=== PATIENT | female | born 1945 | race Asian ===

== ENCOUNTER 2017-04-03 12:23 | Inpatient (IN) | payer MEDICARE ==
[~2017-04-03] VITALS: Ht 149.9 cm; Wt 111.9 kg
[2017-04-03 13:30] LABS: BLOOD UREA NITROGEN 19 mg/dL (7-18)
[2017-04-03] MEDS ORDERED: SODIUM CHLORIDE FLUSH 10ML SYR IVF ONE (13:30)
[2017-04-03 13:34] LABS: IS PT STATUS REG ER OR PRE ER? YES
[2017-04-03] MEDS ORDERED: FUROSEMIDE 40 MG/4 ML IVPush ONE (14:30)
[2017-04-03] MEDS ORDERED: NITROGLYCERIN OINT 2%, 1GM TP ONE ×2 (14:30→15:33)
[2017-04-03] MEDS ORDERED: FUROSEMIDE 40 MG/4 ML ONE (15:33)
[2017-04-03] MEDS ORDERED: ALLO300T PO (16:30)
[2017-04-03] MEDS ORDERED: hydrALAzine 20 MG/ML, 1ML IVPush PRN (16:30)
[2017-04-03] MEDS ORDERED: FURO20TA3 PO (16:30)
[2017-04-03] MEDS ORDERED: HEPARIN 5,000 UNITS/ML, 1ML SQ SCH (16:30)
[2017-04-03] MEDS ORDERED: VALS160T3 PO (16:30)
[2017-04-03] MEDS ORDERED: TEMAZEPAM 15 MG CAPSULE PO PRN (16:30)
[2017-04-03] MEDS ORDERED: ONDANSETRON 2MG/ML, 2ML IVPush PRN (16:30)
[2017-04-03] MEDS ORDERED: DILT180C9 PO (16:30)
[2017-04-03] MEDS ORDERED: morphine SULFATE 10 MG/ML, 1ML IVPush PRN (16:30)
[2017-04-03] MEDS ORDERED: ACETAMINOPHEN 325 MG TABLET PO PRN (16:30)
[2017-04-03] MEDS ORDERED: ATOR80TA75 PO (16:30)
[2017-04-03] MEDS ORDERED: RIVA20TA PO (16:30)
[2017-04-03 16:33] VITALS: BP 137/85
[2017-04-03] MEDS: FUROSEMIDE 40 MG/4 ML IV SCH (17:43)
[2017-04-03 19:16] VITALS: BP 113/65
[2017-04-03] MEDS: ATORVASTATIN 80 MG TABLET PO SCH (19:48)
[2017-04-03] MEDS ORDERED: INSU100I7 SQ-INSULIN (20:47)
[2017-04-03] MEDS: ALBUTEROL/IPRATROPIUM 2.5MG/0.5MG, 3 ML NPPB SCH (21:00)
[2017-04-03 22:26] LABS: IS PT STATUS REG ER OR PRE ER? NO
[2017-04-03 22:46] LABS: PATH.CAST-FLAG NOT PRESENT; SPERM-FLAG NOT PRESENT; SRC-FLAG NOT PRESENT; XTAL-FLAG NOT PRESENT; YLC-FLAG NOT PRESENT
[2017-04-03] MEDS: INSULIN ASPART 100 UNITS/ML, PEN SQ-INSULIN SCH (23:00)
[2017-04-04 01:05] VITALS: BP 112/63
[2017-04-04] MEDS: HYDROcodone/APAP 5/325 TABLET PO PRN (04:18)
[2017-04-04 04:57] LABS: BLOOD UREA NITROGEN 21 mg/dL (7-18)
[2017-04-04 05:03] LABS: ASPARTATE AMINO TRANSFERASE 20 U/L (15-37)
[2017-04-04 05:11] LABS: IS PT STATUS REG ER OR PRE ER? NO
[2017-04-04 07:07] VITALS: BP 97/61
[2017-04-04] MEDS: ALBUTEROL/IPRATROPIUM 2.5MG/0.5MG, 3 ML NPPB SCH ×4 (07:10→20:00)
[2017-04-04] MEDS: VALSARTAN 160 MG TABLET PO SCH (08:51)
[2017-04-04] MEDS: ALLOPURINOL 300 MG TABLET PO SCH (08:51)
[2017-04-04] MEDS: DILTIAZEM 240 MG CAP.ER.24H PO SCH (08:51)
[2017-04-04] MEDS: FUROSEMIDE 40 MG/4 ML IV SCH ×2 (08:52→16:23)
[2017-04-04] MEDS: POTASSIUM CHLORIDE 20 MEQ TAB.ER.PRT PO SCH (08:52)
[2017-04-04] MEDS: INSULIN ASPART 100 UNITS/ML, PEN SQ-INSULIN SCH ×4 (08:53→20:57)
[2017-04-04] MEDS ORDERED: RIVAROXABAN 20 MG TABLET PO SCH (09:00)
[2017-04-04] MEDS: CEFTRIAXONE PMX 2GM/50ML 50 ML IV SCH (11:55)
[2017-04-04 12:41] VITALS: BP 119/65
[2017-04-04 13:27] VITALS: BP 101/50
[2017-04-04 19:16] VITALS: BP 139/67
[2017-04-04] MEDS: ATORVASTATIN 80 MG TABLET PO SCH (20:56)
[2017-04-05] MEDS: HYDROcodone/APAP 5/325 TABLET PO PRN (00:18)
[2017-04-05] MEDS ORDERED: SODIUM CHLORIDE 0.9%, 250ML IVBOLUS ONE (00:30)
[2017-04-05 02:16] VITALS: BP 75/48
[2017-04-05 06:05] LABS: BLOOD UREA NITROGEN 29 mg/dL (7-18)
[2017-04-05] MEDS: ALBUTEROL/IPRATROPIUM 2.5MG/0.5MG, 3 ML NPPB SCH ×4 (07:30→20:00)
[2017-04-05 08:33] VITALS: BP 118/65
[2017-04-05] MEDS: ALLOPURINOL 300 MG TABLET PO SCH (08:36)
[2017-04-05] MEDS: POTASSIUM CHLORIDE 20 MEQ TAB.ER.PRT PO SCH (08:36)
[2017-04-05] MEDS: VALSARTAN 160 MG TABLET PO SCH (08:37)
[2017-04-05] MEDS: DILTIAZEM 240 MG CAP.ER.24H PO SCH (08:37)
[2017-04-05] MEDS: RIVAROXABAN 15 MG TABLET PO SCH (08:37)
[2017-04-05] MEDS: FUROSEMIDE 40 MG/4 ML IV SCH ×2 (08:37→16:59)
[2017-04-05] MEDS: INSULIN ASPART 100 UNITS/ML, PEN SQ-INSULIN SCH ×4 (08:38→22:13)
[2017-04-05] MEDS: CEFTRIAXONE PMX 2GM/50ML 50 ML IV SCH (12:01)
[2017-04-05 15:09] VITALS: BP 113/66
[2017-04-05 19:05] VITALS: BP 127/76
[2017-04-05] MEDS ORDERED: INSULIN DETEMIR 100 UNITS/ML, PEN SQ-INSULIN SCH (21:00)
[2017-04-05] MEDS: ATORVASTATIN 80 MG TABLET PO SCH (22:13)
[2017-04-06 01:38] VITALS: BP 136/65
[2017-04-06 06:13] LABS: BLOOD UREA NITROGEN 31 mg/dL (7-18)
[2017-04-06] MEDS: ALBUTEROL/IPRATROPIUM 2.5MG/0.5MG, 3 ML NPPB SCH ×2 (07:00→11:00)
[2017-04-06 08:15] VITALS: BP 132/64
[2017-04-06] MEDS ORDERED: FUROSEMIDE 40 MG TABLET PO SCH (09:00)
[2017-04-06] MEDS: INSULIN ASPART 100 UNITS/ML, PEN SQ-INSULIN SCH ×2 (09:51→11:00)
[2017-04-06] MEDS: POTASSIUM CHLORIDE 20 MEQ TAB.ER.PRT PO SCH (09:52)
[2017-04-06] MEDS: DILTIAZEM 240 MG CAP.ER.24H PO SCH (09:52)
[2017-04-06] MEDS: RIVAROXABAN 15 MG TABLET PO SCH (09:52)
[2017-04-06] MEDS: ALLOPURINOL 300 MG TABLET PO SCH (09:52)
[2017-04-06] MEDS: VALSARTAN 160 MG TABLET PO SCH (09:52)
[2017-04-06] MEDS ORDERED: methylPREDNISolone SOD SUCC 125 MG/2 ML IVPush ONE (11:30)
[2017-04-06] MEDS ORDERED: FURO40TA6 PO (11:39)
[2017-04-06] MEDS ORDERED: POTA20TA6 PO (11:39)
[2017-04-06] MEDS ORDERED: CEFD300C37 PO (11:39)
[2017-04-06] MEDS: CEFTRIAXONE PMX 2GM/50ML 50 ML IV SCH (12:00)
== END 2017-04-06 14:30 | disposition home or self-care (01) | DRG 291 ==
LOC: ED 13:22 → EDIP 14:52 → 5SO 15:53 → 4EST 04-04 11:35 → 5SO 04-04 11:41 → 4EST 04-04 13:17 → DCLOUNGE 04-06 13:35
PROVIDERS: ADMIT Family Medicine; ATTEND Internal Medicine
DX: I13.0 Hypertensive heart and chronic kidney disease with heart failure and stage 1 through stage 4 chronic kidney disease, or unspecified chronic kidney disease (principal); I50.33 Acute on chronic diastolic (congestive) heart failure; D68.69 Other thrombophilia; N17.9 Acute kidney failure, unspecified; N39.0 Urinary tract infection, site not specified; B96.20 Unspecified Escherichia coli [E. coli] as the cause of diseases classified elsewhere; E11.22 Type 2 diabetes mellitus with diabetic chronic kidney disease; E66.01 Morbid (severe) obesity due to excess calories; E78.5 Hyperlipidemia, unspecified; I05.0 Rheumatic mitral stenosis; Z96.653 Presence of artificial knee joint, bilateral; I27.2 Other secondary pulmonary hypertension; I48.2 Chronic atrial fibrillation; J44.9 Chronic obstructive pulmonary disease, unspecified; M10.9 Gout, unspecified; N18.9 Chronic kidney disease, unspecified; Z79.01 Long term (current) use of anticoagulants
CPT/HCPCS: 36415; 80048; 80053; 80061; 81001; 82040; 82962; 83036; 83880; 84443; 84484; 85025; 87040; 87077; 87086; 87186; 93005; 93308; 93321; 93325; 94640; 96374; J0696; J1815; J1940; J7620; J2930; J7050

== ENCOUNTER 2018-10-03 14:56 | Inpatient (IN) | payer MEDICARE ==
[~2018-10-03] VITALS: Ht 147.3 cm; Wt 101.5 kg
[~2018-10-03 14:56] MED LIST: ALLO300T PO; ATOR-2 PO; CEFD300C37 PO; DILT180C9 PO; FURO20TA3 PO; FURO40TA6 PO; INSU100I7 SQ-INSULIN; POTA20TA6 PO; RIVA20TA PO; VALS160T3 PO
--- NOTE | 2018-10-03 15:25 | NUR ---
PT COMPLAINS OF SOB WITH PRODUCTIVE COUGH (YELLOW SPUTUM) THAT STARTED TWO DAYS AGO. WAS SEEN AT URGENT CARE YESTERDAY AND PRESCRIBED A Z-PACK, WHICH SHE STARTED LAST NIGHT. PT DENIES FEVER OR CHILLS, CHEST PAIN, BACK PAIN, OR WEAKNESS. PT STATES SHE HAS A HX OF ASTHMA. PT PLACED ON CONT SPO2 AND BP MONITOR. PT ABLE TO SPEAK IN 10-12 WORD SENTENCES, AND DOES NOT APPEAR TO BE IN RESPIRATORY DISTRESS ATT.
--- NOTE | 2018-10-03 15:31 | NUR ---
DR BOOKER AT BEDSIDE
[2018-10-03 15:58] LABS: BASOPHILS # (AUTO) 0.01 x10^3/uL (0-0.1); BASOPHILS % (AUTO) 0 % (0-1); EOSINOPHILS # (AUTO) 0.36 x10^3/uL (0-0.4); EOSINOPHILS % (AUTO) 4 % (1-7); LYMPHOCYTES # (AUTO) 0.71 x10^3/uL (1-3.4); LYMPHOCYTES % (AUTO) 8 % (22-44); MD NO; MEAN CORPUSCULAR HEMOGLOBIN 30.4 pg (27.0-34.8); MEAN CORPUSCULAR HGB CONC 32.7 g/dL (32.4-35.8); MEAN CORPUSCULAR VOLUME 92.9 fL (80-100); MEAN PLATELET VOLUME 8.6 fL (7.4-10.4); MONOCYTES # (AUTO) 0.65 x10^3/uL (0.2-0.8); MONOCYTES % (AUTO) 7 % (2-9); NEUTROPHILS # (AUTO) 7.13 x10^3/uL (1.8-6.8); NEUTROPHILS % (AUTO) 81 % (42-75); PLATELET COUNT 196 x10^3/uL (130-400); RED BLOOD COUNT 4.99 x10^6/uL (3.82-5.3); RED CELL DISTRIBUTION WIDTH 13.7 % (9.6-15.2)
[2018-10-03] MEDS ORDERED: ALBUTEROL/IPRATROPIUM 2.5MG/0.5MG, 3 ML NPPB ONE (16:00)
[2018-10-03] MEDS ORDERED: ALBUTEROL/IPRATROPIUM 2.5MG/0.5MG, 3 ML ONE (16:01)
[2018-10-03 16:06] LABS: ALBUMIN 3.7 g/dL (3.4-5.0); ANION GAP 8 mmol/L (5-15); CHLORIDE 101 mmol/L (98-107); CREATININE 1.18 mg/dL (0.55-1.02)
--- NOTE | 2018-10-03 16:06 | NUR ---
PIV STARTED, 2X BLOOD CULTURES DRAWN
--- NOTE | 2018-10-03 16:07 | NUR ---
RT AT BEDSIDE FOR BREATHING TX
[2018-10-03 16:24] LABS: TROPONIN I < 0.015 ng/mL (0.000-0.045)
[2018-10-03] MEDS ORDERED: FUROSEMIDE 40 MG/4 ML ONE (16:57)
[2018-10-03] MEDS ORDERED: FUROSEMIDE 40 MG/4 ML IVPush ONE (17:00)
--- NOTE | 2018-10-03 17:01 | NUR ---
PT GIVEN LASIX PER EMAR
[2018-10-03] MEDS ORDERED: SODIUM CHLORIDE FLUSH 10ML SYR IVF PRN (17:30)
--- NOTE | 2018-10-03 17:59 | NUR ---
REPORT GIVEN TO YARI SUNSHINE
[2018-10-03] MEDS ORDERED: DOCUSATE 100 MG CAPSULE PO PRN (18:00)
[2018-10-03] MEDS ORDERED: TRAZODONE 50MG TABLET PO PRN (18:00)
[2018-10-03] MEDS ORDERED: POLYETHYLENE GLYCOL 17 GM PACKET PO PRN (18:00)
[2018-10-03] MEDS ORDERED: ACETAMINOPHEN 325 MG TABLET PO PRN (18:00)
[2018-10-03] MEDS ORDERED: DEXTROSE 4 GM TAB.CHEW PO PRN (18:30)
[2018-10-03] MEDS ORDERED: DEXTROSE 50%, 50ML SYRINGE IVPush PRN (18:30)
[2018-10-03] MEDS ORDERED: GLUCAGON 1 MG IM PRN (18:30)
[2018-10-03 18:39] VITALS: BP 106/60
[2018-10-03] MEDS: ATORVASTATIN 80 MG TABLET PO SCH (20:52)
[2018-10-03] MEDS: SODIUM CHLORIDE FLUSH 10ML SYR IVF SCH (20:52)
[2018-10-03] MEDS: GUAIFENESIN/COD200MG-20MG/10ML LIQUID PO PRN (20:53)
[2018-10-03] MEDS ORDERED: [UNRECOGNIZED DRUG - OTHER] SQ-INSULIN SCH (21:00)
[2018-10-03] MEDS ORDERED: INSULIN NPL SQ-INSULIN SCH (21:00)
[2018-10-03] MEDS ORDERED: INSULIN LISPRO SQ-INSULIN SCH (21:00)
[2018-10-03] MEDS: INSULIN HUMULIN 70/30, 3ML PEN SQ-INSULIN SCH (21:01)
[2018-10-03] MEDS: INSULIN REGULAR 100 UNITS/ML, 3ML VIAL SQ-INSULIN SCH (21:01)
[2018-10-03 21:34] LABS: RAPID INFLUENZA A Negative (Negative); RAPID INFLUENZA B Negative (Negative)
[2018-10-03] MEDS ORDERED: OMNIPAQUE 350 MG/ML, 100ML BOTTLE ONE (22:10)
[2018-10-04] VITALS (7 sets, daily range): BP systolic 86–108; BP diastolic 53–66
[2018-10-04] MEDS: GUAIFENESIN/COD200MG-20MG/10ML LIQUID PO PRN ×2 (02:25→08:39)
[2018-10-04] MEDS ORDERED: ALBUTEROL SULFATE 2.5 MG/3 ML ONE (02:41)
[2018-10-04] MEDS: ALBUTEROL SULFATE 2.5MG/0.5ML NPPB PRN (02:49)
[2018-10-04 05:38] LABS: BASOPHILS # (AUTO) 0.07 x10^3/uL (0-0.1); BASOPHILS % (AUTO) 1 % (0-1); EOSINOPHILS # (AUTO) 0.24 x10^3/uL (0-0.4); EOSINOPHILS % (AUTO) 3 % (1-7); LYMPHOCYTES # (AUTO) 0.99 x10^3/uL (1-3.4); LYMPHOCYTES % (AUTO) 13 % (22-44); MD NO; MEAN CORPUSCULAR HEMOGLOBIN 30.6 pg (27.0-34.8); MEAN CORPUSCULAR HGB CONC 32.9 g/dL (32.4-35.8); MEAN CORPUSCULAR VOLUME 93.1 fL (80-100); MEAN PLATELET VOLUME 9.2 fL (7.4-10.4); MONOCYTES # (AUTO) 0.86 x10^3/uL (0.2-0.8); MONOCYTES % (AUTO) 11 % (2-9); NEUTROPHILS # (AUTO) 5.72 x10^3/uL (1.8-6.8); NEUTROPHILS % (AUTO) 73 % (42-75); PLATELET COUNT 163 x10^3/uL (130-400); RED BLOOD COUNT 4.54 x10^6/uL (3.82-5.3); RED CELL DISTRIBUTION WIDTH 13.5 % (9.6-15.2)
[2018-10-04 05:43] LABS: ANION GAP 7 mmol/L (5-15); CALCIUM 8.3 mg/dL (8.5-10.1); CHLORIDE 103 mmol/L (98-107)
[2018-10-04] MEDS: INSULIN HUMULIN 70/30, 3ML PEN SQ-INSULIN SCH ×2 (08:38→20:06)
[2018-10-04] MEDS: INSULIN REGULAR 100 UNITS/ML, 3ML VIAL SQ-INSULIN SCH ×4 (08:38→20:03)
[2018-10-04] MEDS: POTASSIUM CHLORIDE 20 MEQ TAB.ER.PRT PO SCH (08:39)
[2018-10-04] MEDS: DILTIAZEM 240 MG CAP.ER.24H PO SCH (08:40)
[2018-10-04] MEDS: ALLOPURINOL 300 MG TABLET PO SCH (08:40)
[2018-10-04] MEDS: SODIUM CHLORIDE FLUSH 10ML SYR IVF SCH ×2 (08:40→19:46)
[2018-10-04] MEDS: VALSARTAN 160 MG TABLET PO SCH (08:40)
[2018-10-04] MEDS: RIVAROXABAN 20 MG TABLET PO SCH (08:40)
[2018-10-04] MEDS ORDERED: FUROSEMIDE 40 MG/4 ML IV SCH ×2 (09:00)
[2018-10-04] MEDS: GUAIFENESIN 200 MG TABLET PO SCH ×2 (12:37→19:47)
[2018-10-04 17:03] LABS: CLOSTRIDIUM DIFFICILE ANTIGEN NEGATIVE; CLOSTRIDIUM DIFFICILE TOXIN NEGATIVE (Negative)
[2018-10-04] MEDS: ATORVASTATIN 80 MG TABLET PO SCH (19:46)
[2018-10-05 00:46] VITALS: BP 99/71
[2018-10-05] MEDS ORDERED: ALBUTEROL/IPRATROPIUM 2.5MG/0.5MG, 3 ML ONE (04:46)
[2018-10-05 06:15] LABS: CHLORIDE 100 mmol/L (98-107)
[2018-10-05 06:24] LABS: ANION GAP 9 mmol/L (5-15); CALCIUM 8.6 mg/dL (8.5-10.1); CREATININE 1.99 mg/dL (0.55-1.02)
[2018-10-05] MEDS: INSULIN REGULAR 100 UNITS/ML, 3ML VIAL SQ-INSULIN SCH ×4 (07:00→20:54)
[2018-10-05 07:27] VITALS: BP 92/54
[2018-10-05] MEDS: POTASSIUM CHLORIDE 20 MEQ TAB.ER.PRT PO SCH (08:00)
[2018-10-05] MEDS: DILTIAZEM 240 MG CAP.ER.24H PO SCH (09:00)
[2018-10-05] MEDS: VALSARTAN 160 MG TABLET PO SCH (09:00)
[2018-10-05] MEDS: SODIUM CHLORIDE FLUSH 10ML SYR IVF SCH ×2 (09:13→20:10)
[2018-10-05] MEDS: RIVAROXABAN 20 MG TABLET PO SCH (09:13)
[2018-10-05] MEDS: GUAIFENESIN 200 MG TABLET PO SCH ×2 (09:13→20:10)
[2018-10-05] MEDS: INSULIN HUMULIN 70/30, 3ML PEN SQ-INSULIN SCH ×2 (09:13→21:10)
[2018-10-05] MEDS: ALLOPURINOL 300 MG TABLET PO SCH (09:13)
[2018-10-05 12:27] VITALS: BP 95/56
[2018-10-05] MEDS ORDERED: ALBUTEROL SULFATE 2.5 MG/3 ML ONE (16:44)
[2018-10-05] MEDS: ALBUTEROL SULFATE 2.5MG/0.5ML NPPB PRN ×2 (16:49→21:29)
[2018-10-05 20:08] VITALS: BP 128/73
[2018-10-05] MEDS: ATORVASTATIN 80 MG TABLET PO SCH (20:10)
[2018-10-05] MEDS: GUAIFENESIN/COD200MG-20MG/10ML LIQUID PO PRN (20:10)
[2018-10-06 01:14] VITALS: BP 130/70
[2018-10-06] MEDS ORDERED: ALBUTEROL SULFATE 2.5 MG/3 ML ONE ×3 (01:44→14:19)
[2018-10-06] MEDS: ALBUTEROL SULFATE 2.5MG/0.5ML NPPB PRN (01:47)
[2018-10-06 05:39] LABS: CHLORIDE 101 mmol/L (98-107)
[2018-10-06 05:44] LABS: ANION GAP 9 mmol/L (5-15); CALCIUM 7.9 mg/dL (8.5-10.1); CREATININE 2.13 mg/dL (0.55-1.02)
[2018-10-06] MEDS: INSULIN REGULAR 100 UNITS/ML, 3ML VIAL SQ-INSULIN SCH ×4 (06:36→21:00)
[2018-10-06] MEDS ORDERED: ALBUTEROL SULFATE 2.5MG/0.5ML NPPB PRN ×2 (07:00→11:00)
[2018-10-06] MEDS ORDERED: AZITHROMYCIN 500 MG TABLET PO ONE (07:30)
[2018-10-06 07:44] VITALS: BP 134/73
[2018-10-06] MEDS: GUAIFENESIN/COD200MG-20MG/10ML LIQUID PO PRN ×3 (09:27→21:34)
[2018-10-06] MEDS: INSULIN HUMULIN 70/30, 3ML PEN SQ-INSULIN SCH ×2 (09:27→21:35)
[2018-10-06] MEDS: RIVAROXABAN 20 MG TABLET PO SCH (09:27)
[2018-10-06] MEDS: GUAIFENESIN 200 MG TABLET PO SCH ×2 (09:27→21:00)
[2018-10-06] MEDS: ALLOPURINOL 300 MG TABLET PO SCH (09:28)
[2018-10-06] MEDS: DILTIAZEM 240 MG CAP.ER.24H PO SCH (09:28)
[2018-10-06] MEDS: VALSARTAN 160 MG TABLET PO SCH (09:29)
[2018-10-06] MEDS: SODIUM CHLORIDE FLUSH 10ML SYR IVF SCH ×2 (09:31→21:34)
[2018-10-06 12:15] LABS: ANION GAP 9 mmol/L (5-15); CALCIUM 8.6 mg/dL (8.5-10.1); CHLORIDE 100 mmol/L (98-107); CREATININE 2.05 mg/dL (0.55-1.02)
[2018-10-06 13:13] VITALS: BP 101/67
[2018-10-06] MEDS ORDERED: IPRATROPIUM 0.5 MG/2.5 ML INHA HHN SCH (13:30)
[2018-10-06] MEDS ORDERED: ALBUTEROL SULFATE 2.5MG/0.5ML NPPB SCH (15:00)
[2018-10-06] MEDS ORDERED: ALBUTEROL/IPRATROPIUM 2.5MG/0.5MG, 3 ML NPPB SCH (15:00)
[2018-10-06 19:32] VITALS: BP 113/51
[2018-10-06] MEDS: ALBUTEROL/IPRATROPIUM 2.5MG/0.5MG, 3 ML NPPB SCH (20:56)
[2018-10-06] MEDS: ATORVASTATIN 80 MG TABLET PO SCH (21:34)
[2018-10-07 02:03] VITALS: BP 119/68
[2018-10-07] MEDS: ALBUTEROL/IPRATROPIUM 2.5MG/0.5MG, 3 ML NPPB SCH ×4 (02:31→21:00)
[2018-10-07 06:44] VITALS: BP 127/78
[2018-10-07] MEDS ORDERED: FUROSEMIDE 20 MG/2 ML IV ONE ×2 (07:30→17:00)
[2018-10-07] MEDS ORDERED: SODIUM CHLORIDE 0.9% 500 ML IV SCH (07:30)
[2018-10-07] MEDS: ALLOPURINOL 300 MG TABLET PO SCH (08:31)
[2018-10-07] MEDS: GUAIFENESIN/COD200MG-20MG/10ML LIQUID PO PRN ×2 (08:31→16:10)
[2018-10-07] MEDS: VALSARTAN 160 MG TABLET PO SCH (08:31)
[2018-10-07] MEDS: RIVAROXABAN 15 MG TABLET PO SCH (08:31)
[2018-10-07] MEDS: AZITHROMYCIN 250 MG TABLET PO SCH (08:32)
[2018-10-07] MEDS: SODIUM CHLORIDE FLUSH 10ML SYR IVF SCH ×2 (08:32→21:40)
[2018-10-07] MEDS: GUAIFENESIN 200 MG TABLET PO SCH ×2 (08:33→21:40)
[2018-10-07] MEDS: DILTIAZEM 240 MG CAP.ER.24H PO SCH (08:36)
[2018-10-07] MEDS: INSULIN REGULAR 100 UNITS/ML, 3ML VIAL SQ-INSULIN SCH ×4 (08:41→23:24)
[2018-10-07] MEDS: INSULIN HUMULIN 70/30, 3ML PEN SQ-INSULIN SCH ×2 (10:36→20:28)
[2018-10-07 12:01] VITALS: BP 112/54
[2018-10-07] MEDS ORDERED: ALBUTEROL/IPRATROPIUM 2.5MG/0.5MG, 3 ML NPPB PRN (16:30)
[2018-10-07] MEDS ORDERED: IPRATROPIUM INH PRN ×3 (16:30→18:30)
[2018-10-07] MEDS ORDERED: ALBUTEROL INH PRN ×3 (16:30→18:30)
[2018-10-07] MEDS ORDERED: [UNRECOGNIZED DRUG - OTHER] INH PRN (17:00)
[2018-10-07] MEDS ORDERED: ALBUTEROL SULFATE 2.5 MG/3 ML NPPB PRN (17:30)
[2018-10-07 19:29] VITALS: BP 119/60
[2018-10-07] MEDS: ATORVASTATIN 80 MG TABLET PO SCH (21:40)
[2018-10-07] MEDS ORDERED: DIPHENHYDRAMINE 12.5MG/5ML, 10ML UDC PO ONE ×2 (23:00→23:30)
[2018-10-08 01:12] VITALS: BP 120/71
[2018-10-08] MEDS: ALBUTEROL/IPRATROPIUM 2.5MG/0.5MG, 3 ML NPPB SCH ×4 (03:00→20:23)
[2018-10-08 05:18] LABS: ANION GAP 4 mmol/L (5-15); CALCIUM 8.2 mg/dL (8.5-10.1); CHLORIDE 103 mmol/L (98-107)
[2018-10-08 07:40] VITALS: BP 100/67
[2018-10-08] MEDS: INSULIN REGULAR 100 UNITS/ML, 3ML VIAL SQ-INSULIN SCH ×4 (08:34→22:08)
[2018-10-08] MEDS: VALSARTAN 160 MG TABLET PO SCH (08:35)
[2018-10-08] MEDS: GUAIFENESIN 200 MG TABLET PO SCH ×2 (08:35→21:04)
[2018-10-08] MEDS: ALLOPURINOL 300 MG TABLET PO SCH (08:35)
[2018-10-08] MEDS: DILTIAZEM 240 MG CAP.ER.24H PO SCH (08:35)
[2018-10-08] MEDS: RIVAROXABAN 15 MG TABLET PO SCH (08:35)
[2018-10-08] MEDS: AZITHROMYCIN 250 MG TABLET PO SCH (08:35)
[2018-10-08] MEDS: SODIUM CHLORIDE FLUSH 10ML SYR IVF SCH ×2 (08:36→21:05)
[2018-10-08] MEDS: INSULIN HUMULIN 70/30, 3ML PEN SQ-INSULIN SCH ×2 (08:36→21:05)
[2018-10-08 12:58] VITALS: BP 115/68
[2018-10-08] MEDS: FUROSEMIDE 40 MG TABLET PO SCH (17:11)
[2018-10-08] MEDS: POTASSIUM CHLORIDE 10 MEQ TABLET.ER PO SCH (17:11)
[2018-10-08 20:57] VITALS: BP 133/60
[2018-10-08] MEDS: ATORVASTATIN 80 MG TABLET PO SCH (21:04)
[2018-10-09 01:50] VITALS: BP 117/74
[2018-10-09] MEDS: ALBUTEROL/IPRATROPIUM 2.5MG/0.5MG, 3 ML NPPB SCH ×3 (03:00→14:59)
[2018-10-09] MEDS: INSULIN REGULAR 100 UNITS/ML, 3ML VIAL SQ-INSULIN SCH ×3 (07:21→16:42)
[2018-10-09 09:30] VITALS: BP 113/66
[2018-10-09] MEDS: GUAIFENESIN 200 MG TABLET PO SCH (09:43)
[2018-10-09] MEDS: SIMETHICONE 125 MG CHEW TAB PO SCH ×3 (09:43→16:43)
[2018-10-09] MEDS: ALLOPURINOL 300 MG TABLET PO SCH (09:43)
[2018-10-09] MEDS: VALSARTAN 160 MG TABLET PO SCH (09:43)
[2018-10-09] MEDS: POTASSIUM CHLORIDE 10 MEQ TABLET.ER PO SCH (09:43)
[2018-10-09] MEDS: AZITHROMYCIN 250 MG TABLET PO SCH (09:43)
[2018-10-09] MEDS: DILTIAZEM 240 MG CAP.ER.24H PO SCH (09:44)
[2018-10-09] MEDS: FUROSEMIDE 40 MG TABLET PO SCH (09:44)
[2018-10-09] MEDS: SODIUM CHLORIDE FLUSH 10ML SYR IVF SCH (09:44)
[2018-10-09] MEDS: RIVAROXABAN 15 MG TABLET PO SCH (09:48)
[2018-10-09] MEDS: INSULIN HUMULIN 70/30, 3ML PEN SQ-INSULIN SCH (09:48)
[2018-10-09 13:58] VITALS: BP 102/60
[2018-10-09] MEDS ORDERED: AZIT250T89 PO (14:49)
[2018-10-09] MEDS ORDERED: IPRA3AMP30 NPPB (14:49)
== END 2018-10-09 17:28 | disposition home health service (06) | DRG 291 ==
LOC: ED 16:50 → EDIP 17:27 → 5SO 18:28 → 4WST 10-08 17:44 → 5SO 10-08 17:47
PROVIDERS: ADMIT Family Medicine; ATTEND Family Medicine
PROC: 5A09357 Assistance with Respiratory Ventilation, Less than 24 Consecutive Hours, Continuous Positive Airway Pressure (ICD-10-PCS; principal; 2018-10-07)
PROC: 5A09357 Assistance with Respiratory Ventilation, Less than 24 Consecutive Hours, Continuous Positive Airway Pressure (ICD-10-PCS; 2018-10-08)
DX: I13.0 Hypertensive heart and chronic kidney disease with heart failure and stage 1 through stage 4 chronic kidney disease, or unspecified chronic kidney disease (principal); I50.43 Acute on chronic combined systolic (congestive) and diastolic (congestive) heart failure; N17.9 Acute kidney failure, unspecified; J45.901 Unspecified asthma with (acute) exacerbation; J44.9 Chronic obstructive pulmonary disease, unspecified; R06.03 Acute respiratory distress; I95.9 Hypotension, unspecified; E10.22 Type 1 diabetes mellitus with diabetic chronic kidney disease; E10.649 Type 1 diabetes mellitus with hypoglycemia without coma; E10.65 Type 1 diabetes mellitus with hyperglycemia; E78.5 Hyperlipidemia, unspecified; E87.5 Hyperkalemia; G47.33 Obstructive sleep apnea (adult) (pediatric); I08.1 Rheumatic disorders of both mitral and tricuspid valves; I27.20 Pulmonary hypertension, unspecified; I48.2 Chronic atrial fibrillation; I87.8 Other specified disorders of veins; R09.02 Hypoxemia; Z79.01 Long term (current) use of anticoagulants; Z79.4 Long term (current) use of insulin
CPT/HCPCS: 36415; 71045; 71046; 71275; 80048; 82040; 82947; 82962; 83605; 83880; 84145; 84484; 85025; 87040; 87324; 87400; 93005; 93306; 93970; 94640; 96374; 96376; G0378; J1815; J1940; J7611; J7620; Q9967; J7040; J7512

== ENCOUNTER 2019-08-25 15:29 | Outpatient (CLI) | payer MEDICARE ==
[~2019-08-25 15:29] MED LIST changes: +AZIT250T89 PO; +IPRA3AMP30 NPPB
== END 2019-08-25 23:59 | disposition home or self-care (01) ==
LOC: CFH 15:29
PROVIDERS: ATTEND Physician Assistant Medical
DX: I87.2 Venous insufficiency (chronic) (peripheral) (principal); M79.605 Pain in left leg; M79.604 Pain in right leg; R60.9 Edema, unspecified
CPT/HCPCS: 93970